=== PATIENT | male | born 1990 | race Caucasian/White ===

== ENCOUNTER → 2020-07-25 08:57 | Outpatient (BNVA) | payer OTHER, SELFPAY | PROVIDERS: PCP Internal Medicine; Visit Provider Urology ==

== ENCOUNTER 2020-12-26 12:47 | Outpatient (REF) | payer OTHER, SELFPAY ==
--- NOTE | ~2020-12-26 | US_ITS ---
EXAMINATION: US RETROPERITONEAL LIMITED (RENAL ONLY) CLINICAL INFORMATION: Calculus of kidney. COMPARISON: Ultrasound kidneys and bladder 11/24/2018. Renal ultrasound 02/15/2018. X-ray abdomen KUB 07/09/2016. CT abdomen and pelvis 06/14/2016. TECHNIQUE: Real-time imaging of the kidneys. FINDINGS: RIGHT KIDNEY: 10.1 x 5.2 x 5.6 cm (SAG x AP x TRV). The kidney is normal in size, contour, and echogenicity. Renal cortical thickness is normal. No calculi or focal parenchymal lesions. No hydronephrosis. LEFT KIDNEY: 10.1 x 4.5 x 5.0 cm (SAG x AP x TRV). The kidney is normal in size, contour, and echogenicity. Renal cortical thickness is normal. No calculi or focal parenchymal lesions. No hydronephrosis. US/US renal BI IMPRESSION: Unremarkable renal ultrasound.
== END 2020-12-26 12:48 | disposition home or self-care (01) ==
LOC: HO.HMGCX 12:47
PROVIDERS: PCP Internal Medicine; Visit Provider Urology
DX: N20.0 Calculus of kidney (principal)
CPT/HCPCS: 76775

== ENCOUNTER → 2021-01-24 09:23 | Outpatient (BNVA) | payer OTHER, SELFPAY | PROVIDERS: Visit Provider Urology | DX: N32.0 Bladder-neck obstruction (principal); N20.0 Calculus of kidney; R39.12 Poor urinary stream | CPT/HCPCS: 99212 ==

== ENCOUNTER 2021-08-14 08:40 | Outpatient (REF) | payer OTHER, SELFPAY ==
[2021-08-14 11:44] LABS: Alanine Aminotransferase 31 U/L (0-40); Albumin Level 4.4 g/dL (3.5-5.0); Alkaline Phosphatase 131 U/L (39-117); Anion Gap 12 (12-20); Aspartate Amino Transferase 31 U/L (5-37); Bilirubin Total 0.8 mg/dL (0.0-1.0); Blood Urea Nitrogen 9 mg/dL (9-16); Calcium 9.9 mg/dL (8.4-10.2); Carbon Dioxide 28 mmol/L (22-29); Chloride 100 mmol/L (96-108); Cholesterol 184 mg/dL; Estimated Glomerular Filt Rate > 60; Glucose Fasting 76 mg/dL (60-99); HDL Cholesterol 27 mg/dL; LDL Cholesterol Calculated 110 mg/dl; Potassium 4.1 mmol/L (3.3-5.1); Sodium 136 mmol/L (135-145); Total Protein 7.5 g/dL (6.5-8.0); Triglycerides 238 mg/dL
== END 2021-08-14 08:41 | disposition home or self-care (01) ==
LOC: HO.HMGCLDS 08:40
PROVIDERS: PCP Internal Medicine; Visit Provider Internal Medicine
DX: Z00.00 Encounter for general adult medical examination without abnormal findings (principal); E78.5 Hyperlipidemia, unspecified
CPT/HCPCS: 36415; 80053; 80061

== ENCOUNTER 2021-11-26 09:33 | Outpatient (REF) | payer OTHER, SELFPAY ==
--- NOTE | ~2021-11-26 | US_ITS ---
EXAMINATION: US RETROPERITONEAL LIMITED (RENAL ONLY) CLINICAL INFORMATION: Calculus of kidney. COMPARISON: Renal ultrasound 12/26/2020 and 11/24/2018. X-ray KUB 07/09/2016. CT abdomen and pelvis 06/14/2016. TECHNIQUE: Real-time imaging of the kidneys. FINDINGS: RIGHT KIDNEY: 10.3 x 4.2 x 5.1 cm (SAG x AP x TRV). The kidney is normal in size, contour, and echogenicity. Renal cortical thickness is normal. No focal parenchymal lesions or hydronephrosis. There is an echogenic nonobstructive stone upper pole measuring 0.6 x 0.4 x 0.6 cm. LEFT KIDNEY: 10.6 x 4.4 x 5.3 cm (SAG x AP x TRV). The kidney is normal in size, contour, and echogenicity. Renal cortical thickness is normal. No focal parenchymal lesions or hydronephrosis. There is an echogenic stone in upper pole measuring 0.6 x 0.3 x 0.8 cm. US/US renal BI IMPRESSION: Echogenic upper pole bilateral renal calculi. No caliectasis or hydronephrosis seen.
== END 2021-11-26 09:34 | disposition home or self-care (01) ==
LOC: HO.US 09:33
PROVIDERS: PCP Internal Medicine; Visit Provider Urology
DX: N20.0 Calculus of kidney (principal)
CPT/HCPCS: 76775

== ENCOUNTER 2022-06-27 09:40 | Outpatient (REF) | payer OTHER, SELFPAY ==
--- NOTE | ~2022-06-27 | US_ITS ---
EXAMINATION: US RETROPERITONEAL LIMITED (RENAL ONLY) CLINICAL INFORMATION: Calculus of kidney. COMPARISON: Renal ultrasound 11/26/2021 and 12/26/2020. X-ray KUB 07/09/2016. CT abdomen and pelvis 06/14/2016. TECHNIQUE: Real-time imaging of the kidneys. FINDINGS: RIGHT KIDNEY: 9.9 x 5.1 x 5.0 cm (SAG x AP x TRV). The kidney is normal in size, contour, and echogenicity. Renal cortical thickness is normal. 5 mm echogenic focus upper pole consistent with a nonobstructing calculus. No focal parenchymal lesions or hydronephrosis. LEFT KIDNEY: 10.9 x 4.8 x 5.8 cm (SAG x AP x TRV). The kidney is normal in size, contour, and echogenicity. Renal cortical thickness is normal. 3 mm nonobstructing calculus in the upper pole. No focal parenchymal lesions or hydronephrosis. US/US renal BI IMPRESSION: Bilateral nonobstructing upper pole renal calculi, unchanged from prior.
== END 2022-06-27 09:41 | disposition home or self-care (01) ==
LOC: HO.HMGCX 09:40
PROVIDERS: PCP Internal Medicine; Visit Provider Urology
DX: N20.0 Calculus of kidney (principal)
CPT/HCPCS: 76775

== ENCOUNTER → 2022-08-14 11:18 | Outpatient (BNVA) | payer OTHER, SELFPAY | PROVIDERS: PCP Internal Medicine; Visit Provider Urology | DX: R33.9 Retention of urine, unspecified (principal); N20.0 Calculus of kidney | CPT/HCPCS: 51798; 99212 ==

== ENCOUNTER 2023-03-02 09:27 | Outpatient (AMB) | payer OTHER, SELFPAY ==
--- NOTE | 2023-03-02 10:02 | MHC.OFFVIS ---
Intake Intake Visit Reasons: 6m/US Intake Note: Patient is Present for Follow Up Urology Medication: Alfuzosin, Vitamin B6, Antibiotic Allergies: None Blood Thinners: None PVR: 166 Compliants: Patient states that last week he was having some pelvic pain and it had went away. Not feeling pain today at moment. Allergies No Known Allergies [No Known Allergies*] Allergy (Verified 03/02/23 10:03) Medication List - Last Reconciled 03/02/23 by Tosha Oliveira MD alfuzosin ER 10 mg PO DAILY 90 days famotidine 40 mg PO DAILY 90 days pyridoxine (vitamin B6) 100 mg PO DAILY 90 days sertraline 100 mg PO DAILY HPI HPI Comments History of Present Illness Details Kunal is a 32-year-old male who presents to the office for kidney stone follow-up and discussion of US retroperitoneal results. The patient has history of renal calculi. LV--08/14/22-- The patient states consuming adequate amount of water. Denies dysuria. He is prescribed Alfuzosin and is compliant with the medication. I have discussed at length diet modification to decrease risk of forming more kidney stones. I have discussed low oxalate diet and specific foods to avoid including certain green leafy vegetables, chocalate, nuts, tea, beets, rubarb; low sodium, decreased use of animal protein and the importance of hydration drinking up to 2-2.5 liters of fluids and use of adding lemon to water to increase citrate in the diet. A pamphlet is also provided today. Review of chart: US retroperitoneal results reviewed?06/27/22-- Findings of bilateral nonobstructing upper pole renal calculi. Plan: Diet sheet for renal calculi was provided. Discussed to consume adequate amount of water. Continue alfuzosin 10 mg and vitamin B6. US renal prior was ordered. Follow-up after 6 months. [facility] Medical History Hypertriglyceridemia Mild recurrent major depression Encounter for physical examination Depression GERD (gastroesophageal reflux disease) Obese Surgical History H/O hernia repair Family History Father No problems noted. Mother No problems noted. Social History Housing: House Alcohol intake: never Patient Tobacco Use Status: Never used Tobacco e-Cigarette/Vaping Use: Never Used Second Hand Smoke Exposure: No service: No Current occupational status: employed Current occupational exposures/hazards: No Cognitive needs: No Hearing needs: No Vision needs: Yes Review of Systems Const All systems reviewed & are unremarkable except as noted in HPI and below Reports no additional complaints Eyes Reports no additional complaints ENT Reports no additional complaints Card Denies dyspnea Resp Denies cough and Denies dyspnea GI Reports no additional complaints Musc Reports no additional complaints Skin/Breast Denies rash and Denies unusual bruising Neuro Reports no additional complaints Psych Reports no additional complaints Endo Reports no additional complaints Jose/Lymph Reports no additional complaints Aller/Immun Reports no additional complaints Office Procedures Post Void Residual Post Residual Void Post Void Residual (PVR): 166 [id number] Void Residual by ultrasound Results AMB Urinalysis, Automated UA Leukoctes 0 Sulema/uL Last Edit by Mai Falcon [facility] on 03/02/23 10:15 UA Nitrite Negative Last Edit by Mai Falcon, A on 03/02/23 10:15 UA Urobilinogen 0.2 mg/dL Last Edit by Mai Falcon [facility] on 03/02/23 10:15 UA Protein 0 mg/dL Last Edit by Mai Falcon, A on 03/02/23 10:15 UA pH 8.0 Last Edit by Mai Falcon [facility] on 03/02/23 10:15 UA Blood 0 Arun/uL Last Edit by Mai Falcon [facility] on 03/02/23 10:15 UA Specific [place] 1.010 Last Edit by Mai Falcon A on 03/02/23 10:15 UA Ketone Negative Last Edit by Mai Falcon [facility] on 03/02/23 10:15 UA Bilirubin 0 mg/dL Last Edit by Mai Falcon, A on 03/02/23 10:15 UA Glucose 0 mg/dL Last Edit by Mai Falcon [facility] on 03/02/23 10:15 Results Reviewed Results Reviewed: Laboratory Last Values Urine pH (Auto) 8.0 03/02/23 10:04 Specific [place] (Auto) 1.010 03/02/23 10:04 Urine Protein (Auto) 0 mg/dL 03/02/23 10:04 Glucose (UA)(Auto) 0 mg/dL 03/02/23 10:04 Urine Ketones (Auto) Negative 03/02/23 10:04 Urine Blood (Auto) 0 Arun/uL 03/02/23 10:04 Urine Nitrite (Auto) Negative 03/02/23 10:04 Urine Bilirubin (Auto) 0 mg/dL 03/02/23 10:04 Urine Urobilinogen (Auto) 0.2 mg/dL 03/02/23 10:04 Leukocyte Esterase (Auto) 0 Sulema/uL 03/02/23 10:04 Date of Service: 06/27/22 EXAMINATION: US RETROPERITONEAL LIMITED (RENAL ONLY) CLINICAL INFORMATION: Calculus of kidney. COMPARISON: Renal ultrasound 11/26/2021 and 12/26/2020. X-ray KUB 07/09/2016. CT abdomen and pelvis 06/14/2016. TECHNIQUE: Real-time imaging of the kidneys. FINDINGS: RIGHT KIDNEY: 9.9 x 5.1 x 5.0 cm (SAG x AP x TRV). The kidney is normal in size, contour, and echogenicity. Renal cortical thickness is normal. 5 mm echogenic focus upper pole consistent with a nonobstructing calculus. No focal parenchymal lesions or hydronephrosis. LEFT KIDNEY: 10.9 x 4.8 x 5.8 cm (SAG x AP x TRV). The kidney is normal in size, contour, and echogenicity. Renal cortical thickness is normal. 3 mm nonobstructing calculus in the upper pole. No focal parenchymal lesions or hydronephrosis. IMPRESSION: Bilateral nonobstructing upper pole renal calculi, unchanged from prior. Assessment & Plan Assessment & Plan (1) Incomplete bladder emptying: Code(s): R33.9 - Retention of urine, unspecified (2) Nephrolithiasis: Code(s): N20.0 - Calculus of kidney Plan Diet sheet for renal calculi was provided. Discussed to consume adequate amount of water. Continue alfuzosin 10 mg and vitamin B6. US renal prior was ordered. Follow-up after 6 months. Orders: Orders AMB Post Void Residual by ultrasound 03/02/23 R39.12 - Poor urinary stream AMB Urinalysis Automated 03/02/23 Z13.9 - Encounter for screening, unspecified US renal BI 4 Months N20.0 - Calculus of kidney Medications: Refilled pyridoxine (vitamin B6) 100 mg PO DAILY 90 tabs 2RF 90 days N20.0 - Calculus of kidney Patient Instructions: The patient had an opportunity to ask questions regarding treatment plan. All questions were answered. Imaging, Laboratory studies and physical exam results were discussed and reviewed in detail. No major barriers to understanding were identified. The patient expressed understanding and agreement with the above treatment plan. The patient is aware they should contact our office by phone for worsening of their current condition or the appearance of new symptoms. Compliance is encouraged with any medications and followup testing that is ordered. It is a privilege to be allowed the opportunity to participate in the urologic care of your patient. If you have any questions or concerns regarding treatment for the above conditions please do not hesitate to contact me. The office telephone contact is [phone]. This note is constructed in part using voice recognition software. While every effort has been made to ensure accuracy auditing control clerk errors may have been included. Yours sincerely, Tosha Oliveira MD Quality Reporting (2019) Adult ([facility] 138/06/04/68) Smoking risk assessment performed?: Yes Patient Tobacco Use Status: Never used Tobacco Coding Level of Care Code Est Pt Level 4 (24529) Diagnoses Incomplete bladder emptying R33.9 Nephrolithiasis N20.0 CPT Codes Post Residual Void - PVR CPT Code: 42105-Ihku Void Residual by ultrasound ([id number])
== END 2023-03-02 11:09 | disposition home or self-care (01) ==
PROVIDERS: Visit Provider Urology
DX: R33.9 Retention of urine, unspecified (principal); N20.0 Calculus of kidney
CPT/HCPCS: 99214

== ENCOUNTER → 2023-03-02 09:27 | Outpatient (BNVA) | payer OTHER, SELFPAY | PROVIDERS: Visit Provider Urology | DX: N20.0 Calculus of kidney (principal); R33.9 Retention of urine, unspecified | CPT/HCPCS: 51798; 81003; 99212 ==

== ENCOUNTER 2023-07-08 09:42 | Outpatient (REF) | payer OTHER, SELFPAY ==
--- NOTE | ~2023-07-08 | US_ITS ---
EXAMINATION: US RETROPERITONEAL LIMITED (RENAL ONLY) CLINICAL INFORMATION: Calculus of kidney. COMPARISON: Renal ultrasound 06/27/2022 and 11/26/2021. X-ray abdomen KUB 07/09/2016. CT abdomen and pelvis 06/14/2016. TECHNIQUE: Real-time imaging of the kidneys. FINDINGS: RIGHT KIDNEY: 10.6 x 4.6 x 5.6 cm (SAG x AP x TRV). The kidney is normal in size, contour, and echogenicity. Renal cortical thickness is normal. No focal parenchymal lesions or hydronephrosis. 0.6 x 0.3 x 0.5 cm nonobstructing calculus is seen in the upper pole. Question of vascular calcification in the lower pole. LEFT KIDNEY: 11.6 x 5.0 x 6.0 cm (SAG x AP x TRV). The kidney is normal in size, contour, and echogenicity. Renal cortical thickness is normal. No calculi or focal parenchymal lesions. No hydronephrosis. ADDITIONAL FINDINGS: The spleen is enlarged measuring 15.0 cm. US/US renal BI IMPRESSION: 1. 0.6 cm nonobstructing calculus in the upper pole of the right kidney. 2. Normal appearance of the left kidney. 3. Splenomegaly.
== END 2023-07-08 09:43 | disposition home or self-care (01) ==
LOC: HO.HMGCX 09:42
PROVIDERS: PCP Internal Medicine; Visit Provider Urology
DX: N20.0 Calculus of kidney (principal)
CPT/HCPCS: 76775

== ENCOUNTER 2023-08-03 09:30 | Outpatient (AMB) | payer OTHER, SELFPAY ==
--- NOTE | 2023-08-03 09:56 | A.OFFVIS_ITS ---
Intake Visit Reasons: 5m/US Intake Note: Patient is Present for Follow Up on US Results Urology Medication: Alfuzosin, Vitamin B6, Antibiotic Allergies: None Blood Thinners: None Unable to void PVR, 166 mL [employer] Required: No Accompanied by: Self / Same As Patient Allergies No Known Allergies [No Known Allergies*] Allergy (Verified 08/03/23 09:57) Medication List - Last Reconciled 08/03/23 by Tosha Oliveira MD alfuzosin ER 10 mg PO DAILY 90 days famotidine 40 mg PO DAILY 90 days pyridoxine (vitamin B6) 100 mg PO DAILY 90 days sertraline 100 mg PO DAILY HPI Comments Details: Kunal is a 32-year-old male who presents to the office for kidney stone follow- up and discussion of US retroperitoneal results. Reviewed results-renal ultrasound 07/08/2023--6 mm stone right kidney. He is on vitamin B6 100 mg. He is on alfuzosin for BPH symptoms. Unable to give a urine specimen today. Bladder scan PVR 166 mL. Will continue to monitor. Review of chart: 03/02/23---The patient has history of renal calculi. LV--08/14/22-- The patient states consuming adequate amount of water. Denies dysuria. He is prescribed Alfuzosin and is compliant with the medication. I have discussed at length diet modification to decrease risk of forming more kidney stones. I have discussed low oxalate diet and specific foods to avoid including certain green leafy vegetables, chocalate, nuts, tea, beets, rubarb; low sodium, decreased use of animal protein and the importance of hydration drinking up to 2-2.5 liters of fluids and use of adding lemon to water to increase citrate in the diet. A pamphlet is also provided today. Diet sheet for renal calculi was provided. Discussed to consume adequate amount of water. Continue alfuzosin 10 mg and vitamin B6. US renal prior was ordered. Follow-up after 6 months. Review of chart: US retroperitoneal results reviewed?06/27/22-- Findings of bilateral nonobstructing upper pole renal calculi. [facility] Medical History Hypertriglyceridemia Mild recurrent major depression Encounter for physical examination Depression GERD (gastroesophageal reflux disease) Obese Surgical History H/O hernia repair Family History Father No problems noted. Mother No problems noted. Social History Housing: House Alcohol intake: never Patient Tobacco Use Status: Never used Tobacco e-Cigarette/Vaping Use: Never Used Second Hand Smoke Exposure: No service: No Current occupational status: employed Current occupational exposures/hazards: No Cognitive needs: No Hearing needs: No Vision needs: Yes Review of Systems Const All systems reviewed & are unremarkable except as noted in HPI and below Reports no additional complaints Eyes Reports no additional complaints ENT Reports no additional complaints Card Reports no additional complaints Resp Reports no additional complaints GI Reports no additional complaints Reports as per HPI Musc Reports no additional complaints Skin/Breast Reports system reviewed and no additional complaints, except as documented Neuro Reports no additional complaints Psych Reports no additional complaints Endo Reports no additional complaints Jose/Lymph Reports no additional complaints Aller/Immun Reports no additional complaints Quality Reporting (2019) Adult ([facility] 138/06/04/68) Smoking risk assessment performed?: Yes Patient Tobacco Use Status: Never used Tobacco Results Reviewed Results Reviewed: Date of Service: 07/08/23 EXAMINATION: US RETROPERITONEAL LIMITED (RENAL ONLY) CLINICAL INFORMATION: Calculus of kidney. COMPARISON: Renal ultrasound 06/27/2022 and 11/26/2021. X-ray abdomen KUB 07/09/2016. CT abdomen and pelvis 06/14/2016. TECHNIQUE: Real-time imaging of the kidneys. FINDINGS: RIGHT KIDNEY: 10.6 x 4.6 x 5.6 cm (SAG x AP x TRV). The kidney is normal in size, contour, and echogenicity. Renal cortical thickness is normal. No focal parenchymal lesions or hydronephrosis. 0.6 x 0.3 x 0.5 cm nonobstructing calculus is seen in the upper pole. Question of vascular calcification in the lower pole. LEFT KIDNEY: 11.6 x 5.0 x 6.0 cm (SAG x AP x TRV). The kidney is normal in size, contour, and echogenicity. Renal cortical thickness is normal. No calculi or focal parenchymal lesions. No hydronephrosis. ADDITIONAL FINDINGS: The spleen is enlarged measuring 15.0 cm. IMPRESSION: 1. 0.6 cm nonobstructing calculus in the upper pole of the right kidney. 2. Normal appearance of the left kidney. 3. Splenomegaly. Assessment & Plan Assessment & Plan (1) Incomplete bladder emptying: Code(s): R33.9 - Retention of urine, unspecified Category: Medical (2) Nephrolithiasis: Code(s): N20.0 - Calculus of kidney Category: Medical (3) BPH loc w urin obs/LUTS: Code(s): N40.1 - Benign prostatic hyperplasia with lower urinary tract symptoms Category: Medical (4) Right renal stone: Code(s): N20.0 - Calculus of kidney Category: Medical Plan Continue vitamin B6 and alfuzosin. Follow-up in 6 months continue to monitor PVR Medications: Refilled alfuzosin ER administer after the same meal each day 10 mg PO DAILY 90 tabs 3RF 90 days N32.0 - Bladder-neck obstruction, N40.1 - Benign prostatic hyperplasia with lower urinary tract symptoms, N13.8 - Other obstructive and reflux uropathy Patient Instructions: The patient had an opportunity to ask questions regarding treatment plan. The patient expressed understanding and agreement with the above treatment plan. The patient is aware they should contact our office by phone for worsening of their current condition or the appearance of new symptoms. Compliance is encouraged with any medications and followup testing that is ordered. It is a privilege to be allowed the opportunity to participate in the urologic care of your patient. If you have any questions or concerns regarding treatment for the above conditions please do not hesitate to contact me. The office telephone contact is [phone]. This note is constructed in part using voice recognition software. While every effort has been made to ensure accuracy chemistry teacher errors may have been included. Yours sincerely, Tosha Oliveira MD Coding Level of Care Code Est Pt Level 4 (00414) Diagnoses Incomplete bladder emptying R33.9 Nephrolithiasis N20.0 BPH loc w urin obs/LUTS N40.1 Right renal stone N20.0
== END 2023-08-03 10:29 | disposition home or self-care (01) ==
PROVIDERS: PCP Internal Medicine; Visit Provider Urology
DX: R33.9 Retention of urine, unspecified (principal); N20.0 Calculus of kidney; N40.1 Benign prostatic hyperplasia with lower urinary tract symptoms
CPT/HCPCS: 99214

== ENCOUNTER → 2023-08-03 09:30 | Outpatient (BNVA) | payer OTHER, SELFPAY | PROVIDERS: PCP Internal Medicine; Visit Provider Urology | DX: N40.1 Benign prostatic hyperplasia with lower urinary tract symptoms (principal); R33.9 Retention of urine, unspecified; N20.0 Calculus of kidney | CPT/HCPCS: 99212 ==

== ENCOUNTER 2023-10-14 08:10 | Outpatient (AMB) | payer OTHER, SELFPAY ==
--- NOTE | 2023-10-14 08:27 | A.OFFPC_ITS ---
Vital Signs 10/14/23 08:28 Height 5 ft 4 in Weight 226 lb BMI 38.8 BP 142/88 H Blood Pressure Location Lt brachial Position Sitting Pulse 110 H Pulse Source Pulse Oximeter Pulse Oximetry (%) 98 Oxygen Delivery Method Room Air Intake Visit Reasons: Yearly physical Alligator Trapper Required: No Biofuels Product Development Manager: Present (Leanne Ahuja, medical office coordinator) Accompanied by: Self / Same As Patient Allergies No Known Allergies [No Known Allergies*] Allergy (Verified 10/14/23 08:45) Medication List - Last Reconciled 10/14/23 by Marium Vallejo MD alfuzosin ER 10 mg PO DAILY 90 days famotidine 40 mg PO DAILY 90 days pyridoxine (vitamin B6) 100 mg PO DAILY 90 days sertraline 100 mg PO DAILY Tobacco use date assessed: 10/14/23 Dental Screening Dental Screen Date: 10/14/23 Did you have a dental visit in the last 12 months?: Yes Did you have a dental problem in the last 6 months where you did not have access to dental care?: No Was dental information given to patient?: Patient has dentist HPI HPI Comments History of Present Illness Details This is a 33-year-old male with intellectual disability and mild major depression that comes for his physical exam. Major depression stable with SSRIs and would like to see counseling and I send message to Osvaldo Allen from [employer] for that matter. Chest pain or shortness on breath. No change in bowel or bladder habits. [facility] Medical History Hypertriglyceridemia Mild recurrent major depression Encounter for physical examination Depression GERD (gastroesophageal reflux disease) Obese Surgical History H/O hernia repair Family History Father No problems noted. Mother No problems noted. Brother No problems noted. Social History Housing: House Alcohol intake: never Patient Tobacco Use Status: Never used Tobacco e-Cigarette/Vaping Use: Never Used Second Hand Smoke Exposure: No service: No Current occupational status: employed Current occupational exposures/hazards: No Cognitive needs: No Hearing needs: No Vision needs: Yes Questionnaire PHQ-9 Over the last 2 weeks, how often have you been bothered by any of the following problems? 1. Little interest or pleasure in doing things: not at all 2. Feeling down, depressed, or hopeless: not at all 3. Trouble falling or staying asleep, or sleeping too much: not at all 4. Feeling tired or having little energy: not at all 5. Poor appetite or overeating: not at all 6. Feeling bad about yourself - or that you are a failure or have let yourself or your family down: not at all 7. Trouble concentrating on things, such as reading the newspaper or watching television: not at all 8. Moving or speaking so slowly that other people could have noticed. Or the opposite - being so fidgety or restless that you have been moving around a lot more than usual: not at all 9. Thoughts that you would be better off or of hurting yourself in some way: not at all Total score: 0 Depression Screening Interpretation: Negative Depression Screening Done: Yes 84590 - PHQ-9 Billing: Yes Source: Developed by Drs. Stephon Huang, Mary Butt, Jeremy Barrientos and colleagues, with an educational ana from [employer]. Thrive Questionnaire Date Thrive assessed: 10/14/23 I am a: Patient What is your living situation today?: I have a steady place to live Within the past 12 months, did the food you bought not last and you didn't have the money to get more?: Never true Within the past 12 months, did you worry whether your food would run out before you got money to buy more?: Never true Do you have trouble paying for medicines?: No Do you have trouble getting transportation to medical appointments?: No Do you have trouble paying your heating and electricity bill?: No Do you have trouble taking care of your child, family member or friend?: No Do you have trouble with day-to-day activities such as bathing, preparing meals, shopping, managing finances, etc.?: No Are you currently unemployed and looking for a job?: No Are you interested in more education?: No Currently or been in a relationship where the following occur: No concerns repo rted THRIVE Score: 0 AUDIT C Alcohol Use Questionnaire (AUDIT-C) 1. How often do you have a drink containing alcohol?: Never Total Score: 0 Score Reviewed/Action Taken: No NEGRITA-7 AMB Questionnaire NEGRITA-7 Date NEGRITA - 7 assessed: 10/14/23 Feeling nervous, anxious, or on edge: 0 = Not at all Not being able to stop or control worryin = Not at all Worrying too much about different things: 0 = Not at all Trouble relaxin = Not at all Being so restless that it is hard to sit still: 0 = Not at all Becoming easily annoyed or irritable: 0 = Not at all Feeling afraid as if something awful might happen: 0 = Not at all Total NEGRITA-7 score (0-4 normal; 5-9 mild; 10-14 moderate; 15-21 severe): 0 Source: Developed by Drs. Stephon Huang, Mary Butt, Jeremy Barrientos and colleagues, with an educational ana from [employer]. NEGRITA-7 Assessment Billing NEGRITA-7 Assessment Tool: NEGRITA-7 Assessment 26130 Review of Systems Const All systems reviewed & are unremarkable except as noted in HPI and below Card Denies chest pain at rest, Denies chest pain with activity, Denies edema, Denies irregular heart rhythm, Denies claudication, Denies dyspnea, Denies dyspnea on exertion, Denies orthopnea, Denies paroxysmal nocturnal dyspnea and Denies slow heart rate Resp Denies cough, Denies dyspnea and Denies dyspnea on exertion Physical exam (Primary Care) Vital Signs: Last Vital Signs Pulse 110 H 10/14/23 08:28 BP 142/88 H 10/14/23 08:28 Pulse Ox 98 10/14/23 08:28 Oxygen Delivery Method Room Air 10/14/23 08:28 BMI result Body Mass Index 38.8 BMI Assessment/Plan discussion: High BMI High, discussed plan: lifestyle, weight reduction, dietary and physical activity Tobacco/Smoking Status: Tobacco use Status Tobacco use date assessed 10/14/23 10/14/23 08:35 Patient Tobacco Use Status Never used Tobacco 10/14/23 08:35 e-Cigarette/Vaping Use Never Used 10/14/23 08:35 PHQ-9: PHQ-9 Score PHQ-9: Total score 0 10/14/23 08:35 Depression Screening Interpretation: Negative Thrive Assessment: Date of Thrive Assessment Date Thrive assessed 10/14/23 10/14/23 08:35 Currently or been in a relationship where the following occur: No concerns reported [facility] Head: Yes normal to inspection, Yes normocephalic and Yes atraumatic Ears: external ears normal Eyes General: appearance normal, both eyes and all related structures Eyelids: Yes eyelids normal Conjunctivae: conjunctivae normal Neck Neck: Yes normal visual inspection and Yes supple Resp Effort & Inspection: normal respiratory effort Auscultation: clear to auscultation bilaterally Cardio Jugular venous distension: no JVD Rate: regular rate Rhythm: regular rhythm Heart sounds: S1 normal heart sound present and S2 normal heart sound present GI Inspection: Yes normal to inspection Palpation (GI): Soft to palpation and nontender Auscultation: normal bowel sounds Penis: circumcised Scrotum: scrotum normal Testes: Testes normal Skin General skin exam: no rashes or lesions noted Neuro General: no focal motor deficits Extrem General: Yes full ROM Assessment and Plan Assessment & Plan (1) Encounter for physical examination: Code(s): Z00.00 - Encounter for general adult medical examination without abnormal findings Plan: Repeat in a year. (2) Mild recurrent major depression: Code(s): F33.0 - Major depressive disorder, recurrent, mild Patient Instructions: Continue SSRIs. Coding Level of Care Code Est Pt Prev Care 18-39y(91770) Diagnoses Encounter for physical examination Z00.00 Mild recurrent major depression F33.0 Additional Codes NEGRITA-7 Assessment Billing - NEGRITA-7 Assessment Tool: NEGRITA-7 Assessment 89848 ([id number]) Time Spent (min) 31
[2023-10-14 08:28] VITALS: BP 142/88; PULSE 110; O2SAT 98; BMI 38.8
== END 2023-10-14 08:58 | disposition home or self-care (01) ==
PROVIDERS: Visit Provider Internal Medicine
DX: Z00.00 Encounter for general adult medical examination without abnormal findings (principal); F33.0 Major depressive disorder, recurrent, mild
CPT/HCPCS: 99395

== ENCOUNTER 2024-02-04 10:00 | Outpatient (AMB) | payer OTHER, SELFPAY ==
--- NOTE | 2024-02-04 10:10 | A.OFFVIS_ITS ---
Intake Visit Reasons: 6m/Monitor PVR, STANLEY, nephrolithiasis Intake Note: Patient is present for 6M/MONITOR PVR,STANLEY,NEPHROLITHIASIS Urology Medication:VITAMIN B6,ALFUZOSIN,FAMOTIDINE Antibiotic Allergy:NONE Blood Thinner:NONE TODAY'S PVR: 0ML'S Review Appraiser Required: No Allergies No Known Allergies [No Known Allergies*] Allergy (Verified 02/04/24 10:46) Medication List - Last Reconciled 02/04/24 by Tosha Oliveira MD alfuzosin ER 10 mg PO DAILY 90 days famotidine 40 mg PO DAILY 90 days pyridoxine (vitamin B6) 100 mg PO DAILY 90 days sertraline 100 mg PO DAILY HPI Comments Details: 02/04/24--Kunal is a 33-year-old male with mild intellectual disability, presents to the office for obstructive voiding symptoms likely secondary to pelvic floor spasm and kidney stone follow-up. He states last month he saw blood in the urine and thinks he passed a kidney stone, had pain in groin too . Reviewed with him --renal ultrasound 07/08/2023--6 mm stone right kidney. Will cont to monitor. He is on vitamin B6 100 mg. He is on alfuzosin LUTS. Urinalysis 3+ blood. Bladder scan PVR 0 mL. Review of chart: 08/03/23--Kunal is a 32-year-old male who presents to the office for kidney stone follow-up and discussion of US retroperitoneal results. Reviewed results-renal ultrasound 07/08/2023--6 mm stone right kidney. He is on vitamin B6 100 mg. He is on alfuzosin for BPH symptoms. Unable to give a urine specimen today. Bladder scan PVR 166 mL. Will continue to monitor. 03/02/23---The patient has history of renal calculi. LV--08/14/22-- The patient states consuming adequate amount of water. Denies dysuria. He is prescribed Alfuzosin and is compliant with the medication. I have discussed at length diet modification to decrease risk of forming more kidney stones. I have discussed low oxalate diet and specific foods to avoid including certain green leafy vegetables, chocalate, nuts, tea, beets, rubarb; low sodium, decreased use of animal protein and the importance of hydration drinking up to 2-2.5 liters of fluids and use of adding lemon to water to increase citrate in the diet. A pamphlet is also provided today. Diet sheet for renal calculi was provided. Discussed to consume adequate amount of water. Continue alfuzosin 10 mg and vitamin B6. US renal prior was ordered. Follow-up after 6 months. Review of tests: US retroperitoneal results reviewed?06/27/22-- Findings of bilateral nonobstructing upper pole renal calculi. US renal ultrasound 07/08/2023--6 mm stone right kidney. [facility] Medical History Hypertriglyceridemia Mild recurrent major depression Encounter for physical examination Depression GERD (gastroesophageal reflux disease) Obese Surgical History H/O hernia repair Family History Father No problems noted. Mother No problems noted. Brother No problems noted. Social History Housing: House Alcohol intake: never Patient Tobacco Use Status: Never used Tobacco e-Cigarette/Vaping Use: Never Used Second Hand Smoke Exposure: No service: No Current occupational status: employed Current occupational exposures/hazards: No Cognitive needs: No Hearing needs: No Vision needs: Yes Review of Systems Const All systems reviewed & are unremarkable except as noted in HPI and below Reports no additional complaints Eyes Reports no additional complaints ENT Reports no additional complaints Card Reports no additional complaints Resp Reports no additional complaints GI Reports no additional complaints Reports as per HPI Musc Reports no additional complaints Skin/Breast Reports system reviewed and no additional complaints, except as documented Neuro Reports no additional complaints Psych Reports no additional complaints Endo Reports no additional complaints Jose/Lymph Reports no additional complaints Aller/Immun Reports no additional complaints Office Procedures Post Void Residual Post Residual Void Post Void Residual (PVR): 0 15171-Qfym Void Residual by ultrasound Results AMB Urinalysis, Automated UA Leukoctes 0 Sulema/uL Last Edit by ISAURO Aguirre on 02/04/24 10:51 UA Nitrite Negative Last Edit by ISAURO Aguirre on 02/04/24 10:51 UA Urobilinogen 0.2 mg/dL Last Edit by ISAURO Aguirre on 02/04/24 10:5 1 UA Protein 15 mg/dL Last Edit by ISAURO Aguirre on 02/04/24 10:51 UA pH 7.5 Last Edit by Brittany Fletcher CCM on 02/04/24 10:51 UA Blood 200 Arun/uL Last Edit by ISAURO Aguirre on 02/04/24 10:51 UA Specific [place] 1.015 Last Edit by Brittany Fletcher CCM on 02/04/24 10: 51 UA Ketone Negative Last Edit by ISAURO Aguirre on 02/04/24 10:51 UA Bilirubin 0 mg/dL Last Edit by ISAURO Aguirre on 02/04/24 10:51 UA Glucose 0 mg/dL Last Edit by ISAURO Aguirre on 02/04/24 10:51 Quality Reporting (2019) Adult ([facility] 138/06/04/68) Smoking risk assessment performed?: Yes Patient Tobacco Use Status: Never used Tobacco Results Reviewed Results Reviewed: Laboratory Last Values Urine pH (Auto) 7.5 02/04/24 10:51 Specific [place] (Auto) 1.015 02/04/24 10:51 Urine Protein (Auto) 15 mg/dL 02/04/24 10:51 Glucose (UA)(Auto) 0 mg/dL 02/04/24 10:51 Urine Ketones (Auto) Negative 02/04/24 10:51 Urine Blood (Auto) 200 Arun/uL 02/04/24 10:51 Urine Nitrite (Auto) Negative 02/04/24 10:51 Urine Bilirubin (Auto) 0 mg/dL 02/04/24 10:51 Urine Urobilinogen (Auto) 0.2 mg/dL 02/04/24 10:51 Leukocyte Esterase (Auto) 0 Sulema/uL 02/04/24 10:51 Date of Service: 07/08/23 EXAMINATION: US RETROPERITONEAL LIMITED (RENAL ONLY) CLINICAL INFORMATION: Calculus of kidney. COMPARISON: Renal ultrasound 06/27/2022 and 11/26/2021. X-ray abdomen KUB 07/09/2016. CT abdomen and pelvis 06/14/2016. TECHNIQUE: Real-time imaging of the kidneys. FINDINGS: RIGHT KIDNEY: 10.6 x 4.6 x 5.6 cm (SAG x AP x TRV). The kidney is normal in size, contour, and echogenicity. Renal cortical thickness is normal. No focal parenchymal lesions or hydronephrosis. 0.6 x 0.3 x 0.5 cm nonobstructing calculus is seen in the upper pole. Question of vascular calcification in the lower pole. LEFT KIDNEY: 11.6 x 5.0 x 6.0 cm (SAG x AP x TRV). The kidney is normal in size, contour, and echogenicity. Renal cortical thickness is normal. No calculi or focal parenchymal lesions. No hydronephrosis. ADDITIONAL FINDINGS: The spleen is enlarged measuring 15.0 cm. IMPRESSION: 1. 0.6 cm nonobstructing calculus in the upper pole of the right kidney. 2. Normal appearance of the left kidney. 3. Splenomegaly. 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 Follow-up in 9 months continue to monitor PVR Renal US prior Orders: Orders AMB Urinalysis Automated 02/04/24 Z13.9 - Encounter for screening, unspecified US renal BI 02/04/24 N20.0 - Calculus of kidney Medications: Refilled pyridoxine (vitamin B6) 100 mg PO DAILY 90 tabs 2RF 90 days N20.0 - Calculus of kidney alfuzosin ER administer after the same meal each day 10 mg PO DAILY 90 tabs 3RF 90 days N32.0 - Bladder-neck obstruction, N40.1 - Benign prostatic hyperplasia with lower urinary tract symptoms, N13.8 - Other obstructive and reflux uropathy Patient Instructions: The patient had an opportunity to ask questions regarding treatment plan. The patient expressed understanding and agreement with the above treatment plan. The patient is aware they should contact our office by phone for worsening of their current condition or the appearance of new symptoms. Compliance is encouraged with any medications and followup testing that is ordered. It is a privilege to be allowed the opportunity to participate in the urologic care of your patient. If you have any questions or concerns regarding treatment for the above conditions please do not hesitate to contact me. The office telephone contact is [phone]. This note is constructed in part using voice recognition software. While every effort has been made to ensure accuracy digester cook errors may have been included. Yours sincerely, Tosha Oliveira MD Coding Level of Care Code Est Pt Level 4 (95646) Diagnoses Nephrolithiasis N20.0 Spastic pelvic floor syndrome K59.02 Hematuria R31.9 Incomplete bladder emptying R33.9 BPH loc w urin obs/LUTS N40.1 Right renal stone N20.0 CPT Codes Post Residual Void - PVR CPT Code: 98966-Mgyp Void Residual by ultrasound ([id number])
== END 2024-02-04 11:03 | disposition home or self-care (01) ==
PROVIDERS: PCP Internal Medicine; Visit Provider Urology
DX: N20.0 Calculus of kidney (principal); K59.02 Outlet dysfunction constipation; R31.9 Hematuria, unspecified; R33.9 Retention of urine, unspecified; N40.1 Benign prostatic hyperplasia with lower urinary tract symptoms
CPT/HCPCS: 99214

== ENCOUNTER → 2024-02-04 10:00 | Outpatient (BNVA) | payer OTHER, SELFPAY | PROVIDERS: PCP Internal Medicine; Visit Provider Urology | DX: N20.0 Calculus of kidney (principal); N40.1 Benign prostatic hyperplasia with lower urinary tract symptoms; K59.02 Outlet dysfunction constipation; R31.9 Hematuria, unspecified; R33.8 Other retention of urine; N13.8 Other obstructive and reflux uropathy; N32.0 Bladder-neck obstruction | CPT/HCPCS: 51798; 81003; 99212 ==

== ENCOUNTER 2024-10-18 08:44 | Outpatient (REF) | payer OTHER, SELFPAY ==
--- NOTE | ~2024-10-18 | US_ITS ---
CLINICAL HISTORY: N20.0 - Calculus of kidney US of kidneys Comparison: US/SR - US RENAL BI - 07/08/23 09:47 EDT Findings: Right kidney is normal in size, echogenicity and morphology, 9.4 cm in length. No calculus, mass or hydronephrosis. Left kidney is normal in size, echogenicity and morphology, 10.3 cm in length. No calculus, mass or hydronephrosis. Limited color Doppler demonstrates unremarkable bilateral blood flow. Impression: No acute finding. No convincing renal calculus is seen. This document has been electronically signed by: Christina Leonard MD on 10/18/2024 12:12:05
== END 2024-10-18 08:45 | disposition home or self-care (01) ==
LOC: HO.HMGCX 08:44
PROVIDERS: PCP Internal Medicine; Visit Provider Urology
DX: N20.0 Calculus of kidney (principal)
CPT/HCPCS: 76775

== ENCOUNTER → 2024-10-18 08:47 | Outpatient (BNV) | payer OTHER, SELFPAY | PROVIDERS: PCP Internal Medicine; Visit Provider Radiology Diagnostic Radiology | DX: N20.0 Calculus of kidney (principal) | CPT/HCPCS: 76775 ==

== ENCOUNTER 2024-10-20 08:15 | Outpatient (AMB) | payer OTHER, SELFPAY ==
--- NOTE | 2024-10-20 08:25 | MHC.PC.OV ---
Vital Signs 10/20/24 08:26 Height 5 ft 4 in Weight 224 lb BMI 38.4 BP 126/82 Blood Pressure Location Lt brachial Position Sitting Intake Visit Reasons: annual exam Intake Note: Patient here for an annual physical exam Baggage Agent Required: No Accompanied by: Self / Same As Patient Allergies No Known Allergies (No Known Allergies*) Allergy (Verified 10/20/24 08:33) Medication List - Last Reconciled 10/20/24 by Marium Vallejo MD alfuzosin ER 10 mg PO DAILY 90 days famotidine 40 mg PO DAILY 90 days pyridoxine (vitamin B6) 100 mg PO DAILY 90 days sertraline 100 mg PO DAILY Tobacco use date assessed: 10/20/24 Dental Screening Dental Screen Date: 10/20/24 Did you have a dental visit in the last 12 months?: No Did you have a dental problem in the last 6 months where you did not have access to dental care?: No Was dental information given to patient?: Yes HPI HPI Comments History of Present Illness Details The patient is a 34-year-old male presenting for a routine physical examination. The patient has a history of kidney stones and takes vitamin B6 as a preventative measure, although he is unsure of the exact formulation of his current vitamin supplement. He follows up with urology for this condition. The patient previously experienced depression with anxiety and was prescribed sertraline 100 mg, which he has since discontinued as it provided minimal benefit. He is not currently under psychiatric care. The patient experiences heartburn, which is managed with famotidine. He underwent hernia repair surgery, which is his only surgical history. The patient does not smoke, has never smoked, and does not consume alcohol. His parents are alive and healthy, and he lives with them and his brother. - Tetanus vaccine administered in 2016, next due in 2026 - Fasting labs ordered to check cholesterol and triglycerides due to previous borderline results [facility] Medical History Hypertriglyceridemia Mild recurrent major depression Encounter for physical examination Depression GERD (gastroesophageal reflux disease) Obese Surgical History H/O hernia repair Family History Father No problems noted. Mother No problems noted. Brother No problems noted. Social History Housing: House Alcohol intake: never Patient Tobacco Use Status: Never used Tobacco e-Cigarette/Vaping Use: Never Used Second Hand Smoke Exposure: No service: No Current occupational status: employed Current occupational exposures/hazards: No Cognitive needs: No Hearing needs: No Vision needs: Yes Questionnaire PHQ-9 Over the last 2 weeks, how often have you been bothered by any of the following problems? 1. Little interest or pleasure in doing things: not at all 2. Feeling down, depressed, or hopeless: not at all 3. Trouble falling or staying asleep, or sleeping too much: not at all 4. Feeling tired or having little energy: not at all 5. Poor appetite or overeating: not at all 6. Feeling bad about yourself - or that you are a failure or have let yourself or your family down: not at all 7. Trouble concentrating on things, such as reading the newspaper or watching television: not at all 8. Moving or speaking so slowly that other people could have noticed. Or the opposite - being so fidgety or restless that you have been moving around a lot more than usual: not at all 9. Thoughts that you would be better off or of hurting yourself in some way: not at all Total score: 0 Depression Screening Interpretation: Negative Depression Screening Done: Yes 49207 - PHQ-9 Billing: Yes Source: Developed by Drs. Stephon Huang, Mary Butt, Jeremy Barrientos and colleagues, with an educational ana from [employer]. Thrive Questionnaire Date Thrive assessed: 10/18/24 I am a: Patient What is your living situation today?: I choose not to answer this question Within the past 12 months, did the food you bought not last and you didn't have the money to get more?: Never true Within the past 12 months, did you worry whether your food would run out before you got money to buy more?: Never true Do you have trouble paying for medicines?: No Do you have trouble getting transportation to medical appointments?: No Do you have trouble paying your heating and electricity bill?: No Do you have trouble taking care of your child, family member or friend?: No Do you have trouble with day-to-day activities such as bathing, preparing meals, shopping, managing finances, etc.?: No Are you currently unemployed and looking for a job?: No Are you interested in more education?: No Please select the resources that you would like help with: Housing/Longterm and Daily support Currently or been in a relationship where the following occur: No concerns reported THRIVE Score: 0 AUDIT C Alcohol Use Questionnaire (AUDIT-C) 1. How often do you have a drink containing alcohol?: Never Total Score: 0 Score Reviewed/Action Taken: No NEGRITA-7 AMB Questionnaire NEGRITA-7 Date NEGRITA - 7 assessed: 10/20/24 Feeling nervous, anxious, or on edge: 0 = Not at all Not being able to stop or control worryin = Not at all Worrying too much about different things: 0 = Not at all Trouble relaxin = Not at all Being so restless that it is hard to sit still: 0 = Not at all Becoming easily annoyed or irritable: 0 = Not at all Feeling afraid as if something awful might happen: 0 = Not at all Total NEGRITA-7 score (0-4 normal; 5-9 mild; 10-14 moderate; 15-21 severe): 0 Source: Developed by Drs. Stephon Huang, Mary Butt, Jeremy Barrientos and colleagues, with an educational ana from [employer]. NEGRITA-7 Assessment Billing NEGRITA-7 Assessment Tool: NEGRITA-7 Assessment 64572 Review of Systems Const All systems reviewed & are unremarkable except as noted in HPI and below Card Denies chest pain at rest, Denies chest pain with activity, Denies edema, Denies irregular heart rhythm, Denies claudication, Denies dyspnea, Denies dyspnea on exertion, Denies orthopnea, Denies paroxysmal nocturnal dyspnea and Denies slow heart rate Resp Denies cough, Denies dyspnea and Denies dyspnea on exertion GI Denies abdominal pain, Denies change in bowel habits, Denies excessive flatus, Denies nausea and Denies vomiting Denies urinary hesitancy, Denies urinary incontinence and Denies urinary urgency Neuro Denies behavioral changes and Denies lack of coordination Psych Denies behavioral changes Physical exam (Primary Care) Vital Signs: Last Vital Signs BP 126/82 10/20/24 08:26 BMI result Body Mass Index 38.4 BMI Assessment/Plan discussion: High BMI High, discussed plan: lifestyle, weight reduction, dietary and physical activity Tobacco/Smoking Status: Tobacco use Status Tobacco use date assessed 10/20/24 10/20/24 08:29 Patient Tobacco Use Status Never used Tobacco 10/20/24 08:29 e-Cigarette/Vaping Use Never Used 10/20/24 08:29 PHQ-9: PHQ-9 Score PHQ-9: Total score 0 10/20/24 08:29 Depression Screening Interpretation: Negative Thrive Assessment: Date of Thrive Assessment Date Thrive assessed 10/18/24 10/20/24 08:29 Currently or been in a relationship where the following occur: No concerns reported HENMT Head: Yes normal to inspection, Yes normocephalic and Yes atraumatic Ears: external ears normal Eyes General: appearance normal, both eyes and all related structures Eyelids: Yes eyelids normal Conjunctivae: conjunctivae normal Neck Neck: Yes normal visual inspection and Yes supple Resp Effort & Inspection: normal respiratory effort Auscultation: clear to auscultation bilaterally Cardio Jugular venous distension: no JVD Rate: regular rate Rhythm: regular rhythm Heart sounds: S1 normal heart sound present and S2 normal heart sound present GI Inspection: Yes normal to inspection Palpation (GI): Soft to palpation and nontender Auscultation: normal bowel sounds Testes: Testes normal Skin General skin exam: no rashes or lesions noted Neuro General: no focal motor deficits Extrem General: Yes full ROM Psych Appearance: grossly normal Coding Level of Care Code Est Pt Prev Care 18-39y(59217) Diagnoses Encounter for physical examination Z00.00 Mild recurrent major depression F33.0 Additional Codes PHQ-9 - 77418 - PHQ-9 Billing: Yes ([id number]) NEGRITA-7 Assessment Billing - NEGRITA-7 Assessment Tool: NEGRITA-7 Assessment 11022 ([id number]) Time Spent (min) 30 Assessment & Plan Assessment & Plan (1) Encounter for physical examination: Code(s): Z00.00 - Encounter for general adult medical examination without abnormal findings Category: Medical (2) Mild recurrent major depression: Code(s): F33.0 - Major depressive disorder, recurrent, mild Category: Medical Plan The patient will continue with his current regimen for managing kidney stones, including the use of vitamin B6, and will maintain follow-up with urology. The sertraline for depression with anxiety has been discontinued due to minimal benefit, and the patient is not currently under psychiatric care. For heartburn, the patient will continue using famotidine as needed. Preventative care includes the tetanus vaccine, which was administered in 2016 and is next due in 2026. Fasting labs have been ordered to reassess cholesterol and triglyceride levels, with a three-month window for completion. Patient was informed and verbally consented to the use of an ambient scribe for clinic note documentation during this visit. During the visit, we discussed the discontinuation of sertraline due to its minimal benefit for managing depression with anxiety. We also reviewed the patient's preventative care measures, including the tetanus vaccine schedule and the need for fasting labs to monitor cholesterol and triglyceride levels. Orders: Orders Lipid Panel Today E78.1 - Pure hyperglyceridemia, E78.5 - Hyperlipidemia, unspecified Comprehensive [place]. Panel Fast Today E78.1 - Pure hyperglyceridemia Patient Instructions: - Continue taking vitamin B6 for kidney stone prevention and follow up with urology. - Discontinue sertraline as it is no longer needed. - Use famotidine as needed for heartburn. - Schedule and complete fasting labs within the next three months to check cholesterol and triglyceride levels. - Next tetanus vaccine is due in 2026.
[2024-10-20 08:26] VITALS: BP 126/82; BMI 38.4
== END 2024-10-20 08:44 | disposition home or self-care (01) ==
LOC: HO.HMCH 08:16
PROVIDERS: PCP Internal Medicine; Visit Provider Internal Medicine
DX: Z00.00 Encounter for general adult medical examination without abnormal findings (principal); F33.0 Major depressive disorder, recurrent, mild

== ENCOUNTER → 2024-10-20 08:15 | Outpatient (BNVA) | payer OTHER, SELFPAY | PROVIDERS: PCP Internal Medicine; Visit Provider Internal Medicine | DX: Z00.00 Encounter for general adult medical examination without abnormal findings (principal); F41.9 Anxiety disorder, unspecified; F33.0 Major depressive disorder, recurrent, mild; E78.1 Pure hyperglyceridemia; E78.5 Hyperlipidemia, unspecified; Z87.442 Personal history of urinary calculi | CPT/HCPCS: 96127; 99395 ==

== ENCOUNTER 2024-11-03 09:45 | Outpatient (AMB) | payer OTHER, SELFPAY ==
--- NOTE | 2024-11-03 10:15 | MHC.OFFVIS ---
Intake Visit Reasons: 9m/med review/hematuria/kidney stone Intake Note: Patient is present for 9M/MONITOR PVR,STANLEY,NEPHROLITHIASIS Urology Medication:VITAMIN B6,ALFUZOSIN,FAMOTIDINE Antibiotic Allergy:NONE Blood Thinner:NONE PVR:165ml Cleaning Validation Consultant Required: No Allergies No Known Allergies (No Known Allergies*) Allergy (Verified 11/03/24 10:16) Medication List - Last Reconciled 11/03/24 by Tosha Oliveira MD alfuzosin ER 10 mg PO DAILY 90 days famotidine 40 mg PO DAILY 90 days pyridoxine (vitamin B6) 100 mg PO DAILY 90 days HPI Comments Details: 11/03/24--Kunal is a 34-year-old male with mild intellectual disability who is followed for lower urinary tract symptoms of urgency, history of kidney stones. Recent renal ultrasound 10/18/2024 no renal calculi noted. He had a renal ultrasound last year 07/08/23 which noted a 6 mm right kidney stone he is on vitamin B6 100 mg daily. He is on alfuzosin for lower urinary tract symptoms. History of Present Illness - The patient is a 34-year-old male presenting with lower urinary tract symptoms and a history of kidney stones. - Lower urinary tract symptoms: The patient experiences urgency and is on alfuzosin for management. - History of kidney stones: A renal ultrasound on 07/08/23 noted a 6 mm right kidney stone, but a recent ultrasound on 10/18/24 showed no renal calculi. - The patient reported hematuria last month, which resolved after a few days, possibly indicating passage of a kidney stone. - The patient is taking vitamin B6 100 mg daily as a preventative measure for kidney stones. Results - Renal ultrasound on 07/08/23: 6 mm right kidney stone noted. - Renal ultrasound on 10/18/24: No renal calculi noted. Plan - Continue alfuzosin for management of lower urinary tract symptoms. - Continue vitamin B6 100 mg daily as a preventative measure for kidney stones. - Schedule follow-up visit and renal ultrasound for next year to monitor kidney stone status. 02/04/24--Kunal is a 33-year-old male with mild intellectual disability, presents to the office for obstructive voiding symptoms likely secondary to pelvic floor spasm and kidney stone follow-up. He states last month he saw blood in the urine and thinks he passed a kidney stone, had pain in groin too . Reviewed with him --renal ultrasound 07/08/2023--6 mm stone right kidney. Will cont to monitor. He is on vitamin B6 100 mg. He is on alfuzosin LUTS. Urinalysis 3+ blood. Bladder scan PVR 0 mL. 08/03/23--Kunal is a 32-year-old male who presents to the office for kidney stone follow-up and discussion of US retroperitoneal results. Reviewed results-renal ultrasound 07/08/2023--6 mm stone right kidney. He is on vitamin B6 100 mg. He is on alfuzosin for BPH symptoms. Unable to give a urine specimen today. Bladder scan PVR 166 mL. Will continue to monitor. 03/02/23---The patient has history of renal calculi. LV--08/14/22-- The patient states consuming adequate amount of water. Denies dysuria. He is prescribed Alfuzosin and is compliant with the medication. I have discussed at length diet modification to decrease risk of forming more kidney stones. I have discussed low oxalate diet and specific foods to avoid including certain green leafy vegetables, chocalate, nuts, tea, beets, rubarb; low sodium, decreased use of animal protein and the importance of hydration drinking up to 2-2.5 liters of fluids and use of adding lemon to water to increase citrate in the diet. A pamphlet is also provided today. Diet sheet for renal calculi was provided. Discussed to consume adequate amount of water. Continue alfuzosin 10 mg and vitamin B6. US renal prior was ordered. Follow-up after 6 months. Review of tests: US retroperitoneal results reviewed?06/27/22-- Findings of bilateral nonobstructing upper pole renal calculi. US renal ultrasound 07/08/2023--6 mm stone right kidney. [facility] Medical History Hypertriglyceridemia Mild recurrent major depression Encounter for physical examination Depression GERD (gastroesophageal reflux disease) Obese Surgical History H/O hernia repair Family History Father No problems noted. Mother No problems noted. Brother No problems noted. Social History (Reviewed 11/03/24 @ 10:16 by Sary Regan Housing: House Alcohol intake: never Patient Tobacco Use Status: Never used Tobacco e-Cigarette/Vaping Use: Never Used Second Hand Smoke Exposure: No service: No Current occupational status: employed Current occupational exposures/hazards: No Cognitive needs: No Hearing needs: No Vision needs: Yes Review of Systems Const All systems reviewed & are unremarkable except as noted in HPI and below Reports no additional complaints Eyes Reports no additional complaints ENT Reports no additional complaints Card Reports no additional complaints Resp Reports no additional complaints GI Reports no additional complaints Reports as per HPI Musc Reports no additional complaints Skin/Breast Reports system reviewed and no additional complaints, except as documented Neuro Reports no additional complaints Psych Reports no additional complaints Endo Reports no additional complaints Jose/Lymph Reports no additional complaints Aller/Immun Reports no additional complaints Results Reviewed Results Reviewed: Date of Service: 10/18/24 Procedure(s): US renal BI Accession Number(s): [id number] cc: Tosha Oliveira MD; Marium Gomez MD~ CLINICAL HISTORY: N20.0 - Calculus of kidney US of kidneys Comparison: US/SR - US RENAL BI - 07/08/23 09:47 EDT Findings: Right kidney is normal in size, echogenicity and morphology, 9.4 cm in length. No calculus, mass or hydronephrosis. Left kidney is normal in size, echogenicity and morphology, 10.3 cm in length. No calculus, mass or hydronephrosis. Limited color Doppler demonstrates unremarkable bilateral blood flow. Impression: No acute finding. No convincing renal calculus is seen. Date of Service: 07/08/23 EXAMINATION: US RETROPERITONEAL LIMITED (RENAL ONLY) CLINICAL INFORMATION: Calculus of kidney. COMPARISON: Renal ultrasound 06/27/2022 and 11/26/2021. X-ray abdomen KUB 07/09/2016. CT abdomen and pelvis 06/14/2016. TECHNIQUE: Real-time imaging of the kidneys. FINDINGS: RIGHT KIDNEY: 10.6 x 4.6 x 5.6 cm (SAG x AP x TRV). The kidney is normal in size, contour, and echogenicity. Renal cortical thickness is normal. No focal parenchymal lesions or hydronephrosis. 0.6 x 0.3 x 0.5 cm nonobstructing calculus is seen in the upper pole. Question of vascular calcification in the lower pole. LEFT KIDNEY: 11.6 x 5.0 x 6.0 cm (SAG x AP x TRV). The kidney is normal in size, contour, and echogenicity. Renal cortical thickness is normal. No calculi or focal parenchymal lesions. No hydronephrosis. ADDITIONAL FINDINGS: The spleen is enlarged measuring 15.0 cm. IMPRESSION: 1. 0.6 cm nonobstructing calculus in the upper pole of the right kidney. 2. Normal appearance of the left kidney. 3. Splenomegaly. Assessment & Plan Assessment & Plan (1) History of kidney stones: Code(s): Z87.442 - Personal history of urinary calculi Category: Medical Plan Plan - Continue alfuzosin for management of lower urinary tract symptoms. - Continue vitamin B6 100 mg daily as a preventative measure for kidney stones. - Schedule follow-up visit and renal ultrasound for next year to monitor kidney stone status. Orders: Orders US renal BI 10 Months Z87.442 - Personal history of urinary calculi Medications: Refilled pyridoxine (vitamin B6) 100 mg PO DAILY 90 tabs 2RF 90 days N20.0 - Calculus of kidney alfuzosin ER administer after the same meal each day 10 mg PO DAILY 90 tabs 3RF 90 days N32.0 - Bladder-neck obstruction, N40.1 - Benign prostatic hyperplasia with lower urinary tract symptoms, N13.8 - Other obstructive and reflux uropathy Patient Instructions: The patient had an opportunity to ask questions regarding treatment plan. The patient expressed understanding and agreement with the above treatment plan. The patient is aware they should contact our office by phone for worsening of their current condition or the appearance of new symptoms. Compliance is encouraged with any medications and followup testing that is ordered. It is a privilege to be allowed the opportunity to participate in the urologic care of your patient. If you have any questions or concerns regarding treatment for the above conditions please do not hesitate to contact me. The office telephone contact is [phone]. This note is constructed in part using voice recognition software. While every effort has been made to ensure accuracy reverse unit operator errors may have been included. Yours sincerely, Tosha Oliveira MD Scribe Plan - Not visible on output: Patient was informed and verbally consented to the use of an ambient scribe for clinic note documentation during this visit. Coding Level of Care Code Est Pt Level 4 (91452) Diagnoses History of kidney stones Z87.442
== END 2024-11-03 11:01 | disposition home or self-care (01) ==
LOC: HO.HUSH 09:46
PROVIDERS: PCP Internal Medicine; Visit Provider Urology
DX: Z87.442 Personal history of urinary calculi (principal)
CPT/HCPCS: 99214

== ENCOUNTER → 2024-11-03 09:45 | Outpatient (BNVA) | payer OTHER, SELFPAY | PROVIDERS: PCP Internal Medicine; Visit Provider Urology | DX: N20.0 Calculus of kidney (principal); Z87.442 Personal history of urinary calculi | CPT/HCPCS: 99212 ==

== ENCOUNTER 2025-01-19 08:41 | Outpatient (REF) | payer OTHER, SELFPAY ==
[2025-01-19 14:16] LABS: Alanine Aminotransferase 43 U/L (0-40); Albumin Level 4.7 g/dL (3.5-5.0); Alkaline Phosphatase 106 U/L (39-117); Anion Gap 12 (12-20); Aspartate Amino Transferase 39 U/L (5-37); Blood Urea Nitrogen 10 mg/dL (9-16); Calcium 9.8 mg/dL (8.4-10.2); Carbon Dioxide 30 mmol/L (22-29); Chloride 105 mmol/L (96-108); Cholesterol 167 mg/dL (<200); Estimated Glomerular Filt Rate > 60; HDL Cholesterol 30 mg/dL (>40); Potassium 4.5 mmol/L (3.3-5.1); Sodium 142 mmol/L (135-145); Total Protein 7.3 g/dL (6.5-8.0); Triglycerides 161 mg/dL (<150)
== END 2025-01-19 08:42 | disposition home or self-care (01) ==
LOC: HO.HMGCLDS 08:41
PROVIDERS: PCP Internal Medicine; Visit Provider Internal Medicine
DX: E78.1 Pure hyperglyceridemia (principal); E78.5 Hyperlipidemia, unspecified; Z13.6 Encounter for screening for cardiovascular disorders
CPT/HCPCS: 36415; 80053; 80061